=== PATIENT | male | born 1950 | race Caucasian/White ===

== ENCOUNTER → 2016-08-22 | Outpatient (CLI) | payer MEDICARE ==
[~2016-08-22] MED LIST: ADVAIR 500-501 EACH INH; ALTACE2.5 MG PO; ASPIRIN325 MG PO; GLUCOPHAGE XR500 M1 PO; IBUPROFEN200 MG PO; LEVOTHROID(SYN75 MCG PO; LIPITOR40 MG PO; LYRICA300 MG PO; OXYGEN M-15; PLAVIX75 MG PO; PROTONIX40 MG PO; PROVENTIL OR V6.7 GM INH; PROZAC20 MG PO; SPIRIVA RESPIMAT4 G1 INH; TOPROL XL25 MG PO; TYLENOL EXTRA500 MG PO; VITAMIN A10000 UNIT PO; VITAMIN D35000 UNI1 PO; ZYLOPRIM300 MG PO
== END | disposition disaster alternative care site (69) ==
LOC: GRAD 15:45
DX: M25.512 Pain in left shoulder (principal); M75.122 Complete rotator cuff tear or rupture of left shoulder, not specified as traumatic; S43.402A Unspecified sprain of left shoulder joint, initial encounter; X58.XXXA Exposure to other specified factors, initial encounter

== ENCOUNTER 2016-09-30 07:43 | Outpatient (CLI) | payer MEDICARE ==
[~2016-09-30] VITALS: Ht 177.8 cm; Wt 116.8 kg
--- NOTE | ~2016-09-30 | CATH ---
Cardiac Diagnostic + PCI Report Demographics Patient Name KATEY Velásquez Gender Male Date of 1950 Age 66 year(s) Patient Number [id number] Date of Study 09/30/2016 Visit Number [id number] Room Number G6[address] [place] [id number] Ht 177.8 cm Wt 114.7 kg Referring Rebeca Santiago MD Primary Physician Physician Performing Dl Antonio MD Secondary Physician Physician Diagnostic Dl Antonio MD Assisting Physician Physician Interventional Dl Antonio MD Physician Hydro Sprayer Operator Physician Findings and Conclusions Diagnostic Findings and Conclusion 3 vessel CAD. Culprit CX. Diagnostic Recommendations PCI LCX. Interventional Findings and Conclusion 0.014 Prowater. 3 x 15 Emerge. 3.5 x 16 Promus to 3.77 c 0% residual. Interventional Recommendations DAPT x 1 year. Routine post procedure. Procedure Description The patient was brought to the diagnostic cardiac catheterization-EP laboratory in the fasting, non-sedated state. Informed consent was obtained in the written and verbal form after the risks and benefits were explained. The patient had no further questions and agreed to proceed. The planned puncture-incision site(s) were shaved and prepped with ChloraPrep and draped in the usual sterile manner. Conscious sedation, supplemental oxygen, and pain control medications were delivered by a registered nurse under physician guidance. Surface ECG rhythm, blood pressure measurement, and pulse oximetry were monitored throughout the procedure. Arterial access. The access site was infiltrated with lidocaine. The vessel was entered with the Seldinger technique. A sheath was advanced into the vessel and used for catheter placement. Selective left coronary angiography. A catheter was advanced into the left coronary vessel ostium under Fluoroscopic guidance. Contrast was injected by hand. Images were obtained in multiple projections. Selective right coronary angiography. A catheter was advanced into the right coronary vessel ostium under fluoroscopic guidance. Contrast was injected by hand. Images were obtained in multiple projections. Left heart catheterization. A catheter was advanced across the aortic valve to the left ventricle under fluoroscopic guidance. Resting hemodynamics were obtained. Angioplasty and Stent Placement: A guiding catheter was used to intubate the vessel. A 0.14 wire was then used to cross the lesion. A balloon catheter was placed across the lesion and inflated. The balloon catheter was then removed. A Drug Eluting Stent was placed and inflated. Post placement angiograms were performed. Arterial artery hemostasis was achieved. The patient was transferred to a regular nursing floor via cart accompanied by a nurse. The patient left the laboratory in stable condition. Diagnostic Cath Status: Elective Interventional Cath Status: Elective Procedure Procedure Type Diagnostic procedure:Angiography:, Coronary Angios /[facility] PCI procedure:Drug Eluting Coronary Stent:, CFX Indications: Abnormal Stress Test. The procedure was explained in detail to the patient. Risks, complications and alternative treatments were reviewed. Written consent was obtained. Medications Reviewed with Patient prior to Procedure. Angiographic Findings Dominance: Right Cardiac Arteries and Lesion Findings LMCA: Normal (0% Stenosis).Large, normal. LAD: Medium. Patent stents. Diagonal 1 okay. Lesion on Prox LAD: 40% stenosis . LCx: Large, dominant. OM 1 small, okay. OM2 and OM3 large, normal. Lesion on Prox CX: Proximal subsection.90% stenosis 15 mm length reduced to 0%. Pre procedure NADYA II flow was noted. Post Procedure NADYA III flow was present. The guidewire cross was successful.The lesion was diagnosed as a moderate risk lesion.Culprit lesion. Treatment results:Interventional treatment was successful. Devices used - Enliken Wire .014 x 180. Number of passes: 1. - Emerge Balloon 3.0 x 15. 1 inflation(s) to a max pressure of: 8 shane. - Promus Premier 3.5 x 16 Stent. 2 inflation(s) to a max pressure of: 16 shane. Lesion on Dist CX: Mid subsection.75% stenosis 15 mm length reduced to 0%. Pre procedure NADYA III flow was noted. Post Procedure NADYA III flow was present. The guidewire cross was successful.The lesion was diagnosed as a high risk lesion. The lesion was previously treated on 02/17/2003 with the following techniques: drug eluting stent. 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 Treatment results:Interventional treatment was successful. Devices used - Emerge Balloon 3.0 x 15. 3 inflation(s) to a max pressure of: 13 shane. RCA: Normal (0% Stenosis).Large, codominant. Patent stent. PL small, okay. PDA small, okay. Coronary Tree Procedure Data Procedure Date Date: 09/30/2016Start: 11:30 AMEnd: 12:05 PM Entry Locations - Retrograde Percutaneous access was performed through the Right Femoral artery (Primary location). A 6 Fr sheath was inserted. Hemostasis was successfully obtained using Perclose ProGlide ([place]ardo). Closure Comments: Deployed by Tatiana Ingram RN.. Procedure Medications Order and Administration + + + + + !Time !Medication !Dosage !Route ! + + + + + !09/30/2016 11:19 !Fentanyl !50 mcg !I.V. ! !AM ! ! ! ! + + + + + 09/30/2016 11:24 !Oxygen !2 l/min !NC ! !AM ! ! ! ! + + + + + !09/30/2016 11:28 !Versed !1 mg !I.V. ! !AM ! ! ! ! + + + + + !09/30/2016 11:33 !Versed !1 mg !I.V. ! !AM ! ! ! ! + + + + + !09/30/2016 11:33 !Fentanyl !50 mcg !I.V. ! !AM ! ! ! ! + + + + + !09/30/2016 11:36 !Oxygen !6 l/min !NC ! !AM ! ! ! ! + + + + + !09/30/2016 11:43 !Angiomax (Bivalirudin) !85 mg !I.V. bolus ! !AM !(ACC_5) ! ! ! + + + + + !09/30/2016 11:58 !Fentanyl !100 mcg !I.V. ! !AM ! ! ! ! + + + + + !09/30/2016 11:44 !Angiomax (Bivalirudin) !1.75 mg/kg/hr!I.V. bolus ! !AM !(ACC_5) ! ! ! + + + + + !09/30/2016 11:59 !Angiomax (Bivalirudin) ! !I.V. bolus ! !AM !(ACC_5) ! ! ! + + + + + !09/30/2016 11:59 !Brilinta (Ticagrelor) !180 mg !P.O. ! !AM !(ACC_20) ! ! ! + + + + + Devices Used - A6 Fr. BS JL 4 Diag. Catheter. - A6 Fr. BS JR 4 Diag. Catheterwas used for:Right coronary angiography. - A6 Fr. BS Angled Pigtail Diag. Catheterwas used for:LV Pressures. - A6 Fr. XB 3.5 Guide Catheterwas used for:Circumflex Intervention. Fluoroscopy Time: Diagnostic: 8:42 minutes. Total: 8:42 minutes. Fluoroscopy Dose: Diagnostic: 2187 mGy. Total: 2187 mGy. Estimated Blood Loss: 5 ml. Additional [facility] PCI Information PCI Indication:PCI for high risk Non-STEMI or unstable angina. Medical History Performed Procedures and Imaging Results - Stress testing with SPECT MPIwas performed. Results were: Positive. Risk/Extent of ischemia was: Intermediate risk. Allergies - No known allergies. Risk Factors The patient risk factors include:prior PCI;hypertension, family history of premature CAD, chronic lung disease, last creatinine: 1.1 mg/dl, creatinine clearance: 110.07 ml/min, dyslipidemia, former tobacco use and prior DE . Admission Data Admission Date: 09/30/2016 Admission Time: 07:43 AM Admit Source: Other Insurance Payors: Medicare. Admission Medications + +------+------+ + + + + !Medication !Dosage!Times !Last !Last !Administered !Comments ! ! ! !Per !Delivery !Delivery ! ! ! ! ! !Day !Date !Time ! ! ! + +------+------+ + + + + !Aspirin ! ! ! ! !Yes ! ! !(any) ! ! ! ! ! ! ! + +------+------+ + + + + !Statin (any)! ! ! ! !Yes ! ! + +------+------+ + + + + !Clopidogrel ! ! ! ! !Yes ! ! + +------+------+ + + + + !Beta Delano! ! ! ! !Yes ! ! !(any) ! ! ! ! ! ! ! + +------+------+ + + + + !BLAYNE ! ! ! ! !Yes ! ! !Inhibitor ! ! ! ! ! ! ! !(any) ! ! ! ! ! ! ! + +------+------+ + + + + Clinical Evaluation Leading to Procedure - The patient's CAD presentation was assessed as: Unstable angina. - The patient's anginal syndrome during the past two weeks was assessed as: Class III according to the [place] Cardiovascular Society Classification System (CCS). Anti-anginal medications were prescribed during the past two weeks. The medication is: Beta Blockers. Hemodynamics Condition: Rest O2 Consumption: Estimated: 252.86Heart Rate: 51 bpm Pressures (mmHg) +-----+ + !Site !Pressure ! +-----+ + !AO !161/85 (112) ! +-----+ + !LV !155/7 ,35 ! +-----+ + !LV !146/4 ,29 ! +-----+ + !AO !152/72 (104) ! +-----+ + !LV !147/6 ,30 ! +-----+ + !AO !136/65 (95) ! +-----+ + Valve Gradients and Areas + +---------+---------+---------+ +---------+ + !Valve !Peak !Mean !Area !Index !Flow !Source ! + +---------+---------+---------+ +---------+ + !Aortic !0 !0 ! ! ! ! ! + +---------+---------+---------+ +---------+ + !Aortic !0 !0 ! ! ! ! ! + +---------+---------+---------+ +---------+ + Shunts Oxygen Values O2 Capacity 189.04 O2 Consumption 252.86 Discharge Data Discharge Date: 10/01/2016 Hospital Status: Outpatient Signatures dtt: Paco Lizama (cardio) dtd: 09/30/16 1130 Physician Self Edit
[2016-09-30 12:03] LABS: MAGNESIUM 1.9 mg/dL (1.8-2.6); POTASSIUM 3.9 mMol/L (3.7-5.1)
--- NOTE | 2016-09-30 16:49 | NUR ---
PATIENT WAS AN AM HEART CATH TODAY, HE RECEIVED A STENT TO THE CIRC. ACCESS SITE IS RIGHT GROIN IT IS CLEAN DRY AND INTACT AND SOFT. PATIENT IS OFF BED REST BUT DID NOT WANT TO GET OUT OF BED.
--- NOTE | 2016-10-01 04:38 | NUR ---
Significant Event:A/Ox3. VSS on 2L/NC per home dose of 2L at HS. R)groin site C/D/I no hematoma noted. CSM wnl. Ambulated in room a little bit but refused to walk in the halls. C/O chronic pain to bilateral shoulders relieved with a warm blanket, tylenol and repositioning. PIV to L)hand saline locked. Follow up:Discharge to home today.
[2016-10-01 05:58] LABS: BASOPHIL # 0.1 K/uL (0.0-0.2); BASOPHIL % 0.9 %; EOSINOPHIL # 0.2 K/uL (0.0-0.5); EOSINOPHIL % 4.1 %; HEMATOCRIT 39.8 % (37.0-53.0); HEMOGLOBIN 13.1 g/dL (11.0-16.0); IMMATURE GRANULOCYTE % 0.2 %; LYMPHOCYTE # 1.6 K/uL (0.8-4.0); LYMPHOCYTE % 27.7 %; MCH 30.9 pg (27.0-34.0); MCHC 32.9 gm/dL (32.0-36.5); MCV 93.9 fl (83.0-98.0); MONOCYTE # 0.7 K/uL (0.0-1.0); MONOCYTE % 12.6 %; MPV 10.9 fl (9.4-12.4); NEUTROPHIL # (ANC) 3.1 K/uL (1.4-9.0); NEUTROPHIL % 54.5 %; NRBC % 0 /100WBC (0-0.00); PLATELET COUNT 175 K/uL (150-450); RBC 4.24 M/uL (3.50-5.50); RDW-CV 12.5 % (11.9-14.6); WBC 5.6 K/uL (4.0-11.0)
[2016-10-01 06:26] LABS: ALBUMIN 3.3 gm/dL (3.5-5.0); ANION GAP 8.5 (10.0-19.0); CALCIUM 8.5 mg/dL (8.5-10.5); CREATININE 1.2 mg/dL (0.6-1.3); POTASSIUM 4.5 mMol/L (3.7-5.1); TOTAL BILIRUBIN 0.3 mg/dL (0.0-1.5); TOTAL PROTEIN 6.6 g/dL (6.0-8.4)
== END 2016-10-01 11:10 | disposition disaster alternative care site (69) ==
LOC: GPCU 07:43 → GPOC 07:43 → GPCU 12:06 → GPOC 10-01 11:10
PROVIDERS: Internal Medicine Interventional Cardiology
PROC: 4A023N7 Measurement of Cardiac Sampling and Pressure, Left Heart, Percutaneous Approach (ICD-10-PCS; principal; 2016-09-30)
PROC: B216YZZ Fluoroscopy of Right and Left Heart using Other Contrast (ICD-10-PCS; 2016-09-30)
DX: I25.110 Atherosclerotic heart disease of native coronary artery with unstable angina pectoris (principal); I44.0 Atrioventricular block, first degree; R00.1 Bradycardia, unspecified; R94.31 Abnormal electrocardiogram [ECG] [EKG]
CPT/HCPCS: C1725; C1760; C1769; C1874; C1887; C9600; J0583; J1644; J2001; J2250; J3010; J7030; J7060